=== PATIENT | female | born 1985 | race Caucasian/White ===

== ENCOUNTER → 2018-02-10 07:39 | Outpatient (CLI) | payer OTHER, MEDICAID, SELFPAY ==
--- NOTE | 2018-02-10 | DI.US.S_ITS ---
PROCEDURE: US PELVIC COMPLETE INDICATIONS: PELVIC PAIN TECHNIQUE: Real-time scanning was performed of the pelvic organs, with image documentation. Additional endovaginal scanning was necessary due to incomplete visualization of the adnexal and endometrial structures by transabdominal scanning. COMPARISON: [facility], , PELVIC COMPLETE, 06/11/2015, 8:07. FINDINGS: Transabdominal scanning: Limited scanning through the kidneys shows no hydronephrosis. No pathologic free abdominal or pelvic fluid. Endovaginal scanning: Uterus: Uterus is normal in size at 7.3 x 3.2 x 4.9 cm. The endometrium measures 3.8 mm in combined thickness. Intrauterine device in expected position. Ovaries: Normal ovaries bilaterally measuring 3.1 x 1.6 x 1.5 cm on the right and 2.5 x 1.4 x 1.9 cm on the left. IMPRESSION: No source for pelvic pain identified sonographically. Dictated by: Donovan WELLSA Interpreted: Hoa Dia MD on 02/10/2018 at 8:58 Approved by: Hoa Dia MD, PhD on 02/10/2018 at 11:39
== END ==
PROVIDERS: Family Provider Nurse Practitioner; PCP Nurse Practitioner; Visit Provider Nurse Practitioner
DX: R10.2 Pelvic and perineal pain (principal)
CPT/HCPCS: 76830; 76856

== ENCOUNTER 2018-11-05 19:34 | Emergency (ER) | payer OTHER, MEDICAID, SELFPAY ==
[2018-11-05 19:37] VITALS: BP 124/70; PULSE 59; RESP 16; TEMP 36.6; O2SAT 100; BMI 25.4
--- NOTE | 2018-11-05 19:47 | DI.RAD.S_ITS ---
PROCEDURE: XR CHEST 1V INDICATIONS: chest pain TECHNIQUE: One view of the chest was acquired. COMPARISON: None. FINDINGS: Surgical changes and devices: None. Lungs and pleura: Lungs are clear. No pleural effusions or pneumothorax. Mediastinum: Mediastinal contours appear normal. Heart size is normal. Bones and chest wall: No suspicious bony lesions. Overlying soft tissues appear unremarkable. IMPRESSION: Normal chest. Dictated by: Portia Ferreira M.D. on 11/05/2018 at 20:54 Approved by: Portia Ferreira M.D. on 11/05/2018 at 20:54
--- NOTE | 2018-11-05 20:25 | ED.CHESTPAIN ---
HPI - Chest Pain General Chief Complaint: Chest Pain Stated Complaint: chest pain Time Seen by Provider: 11/05/18 20:25 Source: patient Mode of arrival: ambulatory Limitations: no limitations History of Present Illness HPI narrative: Patient is an otherwise healthy 33-year-old female here for evaluation of left-sided chest pain that radiates down her left arm. She states that she woke up with this morning and has been constant since this morning. Potentially worse with touching it. No change with moving her arm. No change with breathing. No trauma. No prior history of this. Has not tried anything for prior to arrival. She did have an Implanon on placed in August of this year. She has some concern that this may be causing her symptoms. Related Data Previous Rx's Medication Instructions Recorded etonogestrel-ethinyl estradiol 1 vaginalrin VAG Q4W #3 each 03/14/18 0.12 mg -0.015 mg/24 hr vaginal ring lamotrigine 200 mg tablet 200 mg PO QDAY #30 tab 06/26/18 guanfacine ER 1 mg tablet,extended 1 mg PO QPM #30 tab 10/30/18 release 24 hr Allergies Allergy/AdvReac Type Severity Reaction Status Date / Time No Known Drug Allergies Allergy Verified 11/05/18 19:43 Review of Systems Constitutional Denies headache(s) ENT Ears, Nose, Mouth, and Throat: Denies vertigo, Denies dizziness and Denies headache(s) Cardiovascular Reports chest pain, Denies diaphoresis, Denies edema, Denies leg edema, Denies lightheadedness, Denies palpitations and Denies dyspnea Respiratory Denies dyspnea Gastrointestinal Gastrointestinal: Denies abdominal pain, Denies nausea and Denies vomiting Musculoskeletal Denies myalgias and Denies arthralgias Integumentary/Breasts Denies rash Neurologic Denies vertigo, Denies dizziness and Denies headache(s) Endocrine Denies palpitations Hematologic/Lymphatic Denies easy bleeding and Denies easy bruising [facility] Medical History Healthy adult (Acute) Social History Smoking Status: Former smoker Social History Smoking Status: Former smoker Exam Initial Vital Signs Initial Vital Signs: Vital Signs Temperature 97.9 F 11/05/18 19:37 Pulse Rate 59 L 11/05/18 19:37 Respiratory Rate 16 11/05/18 19:37 Blood Pressure 124/70 11/05/18 19:37 Pulse Oximetry 100 11/05/18 19:37 Const General: cooperative, healthy appearing, comfortable, well developed, well groomed and No acute distress Orientation: alert, awake and oriented x3 HENMT Head: normal to inspection and normocephalic Resp Effort & Inspection: normal respiratory effort Auscultation: clear to auscultation bilaterally Cardio Rate: regular rate Rhythm: regular rhythm Pulses: radial pulses present GI Inspection: non-distended Palpation: soft, No firm and No tender Skin Lesions: no lesions Rashes: no rashes Neuro General: alert, awake and oriented x3 Cognition: normal cognition Speech: speech normal Extrem General: normal to inspection, capillary refill normal and pedal edema Psych Appearance: grossly normal and well kempt Scores GCS [place] coma scale eye opening: Spontaneous Abhi coma scale verbal response: Orientated [place] coma scale motor response: Obey commands [place] coma scale total score: 15 HEART Score Heart Score history: Slightly Suspicious Heart Score EKG: Normal Heart Score Age: < 45 years old Heart Score risk factors: No known risk factors Heart Score troponin: < or = to normal limit Heart Score Total: 0 PERC Score Age greater than or equal to 50 years: No Heart rate greater than or equal to 100 bpm: No Room Air O2 Sat less than 95%: No Unilateral leg swelling: No Recent trauma or surgery: No Hemoptysis: No Prior PE or DVT: No Hormone Use: Yes Total PERC Score: 1 Course Orders Ordered: ED Orders 11/05/18 19:47 XR chest 1V Stat EKG-12 Lead Stat 11/05/18 20:37 Complete Blood Count AUTO DIFF Stat Comprehensive Metabolic Panel Stat D Dimer Stat Troponin & CK Cardiac Panel Stat Vital Signs - 8 hr 11/05/18 19:37 11/05/18 21:40 Temperature 97.9 F Pulse Rate 59 L 59 L Respiratory Rate 16 18 Blood Pressure 124/70 102/61 Pulse Oximetry 100 100 MDM - Chest Pain Lab Data Attestation: I reviewed the patient's lab results. Result diagrams: 11/05/18 20:37 11/05/18 20:37 Lab Results 11/05/18 11/05/18 11/05/18 Range/Units 20:37 20:37 20:37 WBC 6.9 (4.5-11.0) X10^3/uL RBC 4.21 (4.0-5.2) X10^6/uL Hgb 13.5 (12.0-16.0) g/dL Hct 39.3 (36-46) % MCV 93.3 (80-100) fL MCH 32.1 (26-34) PG MCHC 34.3 (30-36) % RDW 12.5 (11.6-14.8) % Plt Count 203 (150-400) X10^3/uL Neut % (Auto) 50.1 (50-75) % Lymph % (Auto) 39.2 (25-40) % Rich % (Auto) 8.4 (3-14) % Eos % (Auto) 1.6 L (2-4) % Baso % (Auto) 0.7 (0-2) % Neut # (Auto) 3500 (0521-2100) /uL Lymph # (Auto) 2700 (9815-9946) /uL Rich # (Auto) 600 (0-900) /uL Eos # (Auto) 100 (0-450) /uL Baso # (Auto) 0 (0-100) /uL D-Dimer < 200 (<230) ng/mL Sodium 140 (137-145) mmol/L Potassium 4.6 (3.4-5.1) mmol/L Chloride 103 (98-107) mmol/L Carbon Dioxide 29 (22-32) mmol/L BUN 16 (7-17) mg/dL Creatinine 1.00 (0.52-1.04) mg/dL Estimated GFR > 60.0 (>60) mL/min BUN/Creatinine Ratio 16.0 (6-22) Glucose 98 (70-100) mg/dL Calcium 9.4 (8.4-10.2) mg/dL Total Bilirubin 0.3 (0.2-1.3) mg/dL AST 20 (14-36) IU/L ALT 22 (9-52) IU/L Alkaline Phosphatase 55 (38-126) U/L Total Creatine Kinase 82 (30-135) U/L CK-MB (CK-2) TNP CK-MB (CK-2) Rel Index TNP Troponin I < 0.012 (0.01-0.034) ng/mL Total Protein 7.3 (6.3-8.2) g/dL Albumin 4.6 (3.5-5.0) g/dL Globulin 2.7 (1.7-4.1) g/dL Albumin/Globulin Ratio 1.7 (1.0-2.8) Imaging Data Chest x-ray: Radiologist's impression: [address] [address] XRay Report Signed Patient: Esther Gay LMR#: [id number] : 1985Acct:[id number] Age/Sex: 33 / FDate of Service: 11/05/18 Loc: ED Accession Number: [id number] Procedure: XR chest 1V Ordering Provider: Ray Grigsby D.O. PROCEDURE: XR CHEST 1V INDICATIONS: chest pain TECHNIQUE: One view of the chest was acquired. COMPARISON: None. FINDINGS: Surgical changes and devices: None. Lungs and pleura: Lungs are clear. No pleural effusions or pneumothorax. Mediastinum: Mediastinal contours appear normal. Heart size is normal. Bones and chest wall: No suspicious bony lesions. Overlying soft tissues appear unremarkable. IMPRESSION: Normal chest. Dictated by: Portia Ferreira M.D. on 11/05/2018 at 20:54 Approved by: Portia Ferreira M.D. on 11/05/2018 at 20:54 ECG Data Attestation: I personally reviewed and interpreted this ECG as follows: Prior ECG tracings: not available for review Interpretation: Sinus bradycardia Ventricular rate of 56 Normal as needed oval Normal QRS Left anterior fascicular block No ST T wave changes MDM Narrative Medical decision making narrative: Patient is low risk for ACS, D-dimer negative. Low suspicion for PE. Chest x-ray is unremarkable. Low suspicion for pneumonia. Discussed the symptoms with the patient. Informed her that it would be too early to states that the implant on was the cause of her symptoms. I informed her that is not unreasonable to start on some Zantac to see if she does not improve. I informed her multiple times that I was not telling her that she had reflux disease however since she was low risk for other etiologies that this may potentially help her symptoms. Informed her to contact her primary care doctor for follow-up. Patient expressed understanding and agreement with plan. Discharge Plan Departure Patient Disposition: Home Clinical Impression: Atypical chest pain Discharge Date/Time: 11/05/18 21:41 Interventions: ED Discharge Assessment Last Done: 11/05/18 21:40 Instructions: DI for Atypical Chest Pain Activity Restrictions/Additional Instructions: Contact your primary care doctor for a follow-up. Return to the emergency department for any new or worsening symptoms. Prescriptions: No Action lamotrigine 200 mg tablet 200 mg PO QDAY Qty: 30 RF: 5 etonogestrel-ethinyl estradiol [NuvaRing] 0.12-0.015 mg/24 hr ring 1 vaginalrin VAG Q4W Qty: 3 RF: 3 guanfacine 1 mg tablet extended release 24 hr 1 mg PO QPM Qty: 30 RF: 2 Referrals: Kelli Murray ARNP [Primary Care Provider] -
[2018-11-05 20:52] LABS: Add Manual Diff / Slide Review NO; Basophils Absolute Auto 0 /uL (0-100); Basophils Percent Auto 0.7 % (0-2); Eosinophils Absolute Auto 100 /uL (0-450); Eosinophils Percent Auto 1.6 % (2-4); Hematocrit 39.3 % (36-46); Hemoglobin 13.5 g/dL (12.0-16.0); Lymphocytes Absolute Auto 2700 /uL (1100-4500); Lymphocytes Percent Auto 39.2 % (25-40); Mean Corpuscular HGB Conc 34.3 % (30-36); Mean Corpuscular Hemoglobin 32.1 PG (26-34); Mean Corpuscular Volume 93.3 fL (80-100); Monocytes Absolute Auto 600 /uL (0-900); Monocytes Percent Auto 8.4 % (3-14); Neutrophils Absolute Auto 3500 /uL (1500-7000); Neutrophils Percent Auto 50.1 % (50-75); Platelet Count 203 X10^3/uL (150-400); Red Blood Cell Count 4.21 X10^6/uL (4.0-5.2); Red Cell Distribution Width 12.5 % (11.6-14.8); White Blood Cell Count 6.9 X10^3/uL (4.5-11.0)
[2018-11-05 21:01] LABS: Alanine Aminotransferase 22 IU/L (9-52); Albumin 4.6 g/dL (3.5-5.0); Albumin Globulin Ratio 1.7 (1.0-2.8); Alkaline Phosphatase 55 U/L (38-126); Aspartate Aminotransferase 20 IU/L (14-36); Bilirubin Total 0.3 mg/dL (0.2-1.3); Blood Urea Nitrogen 16 mg/dL (7-17); Calcium 9.4 mg/dL (8.4-10.2); Carbon Dioxide 29 mmol/L (22-32); Chloride 103 mmol/L (98-107); Creatine Kinase 82 U/L (30-135); D Dimer < 200 ng/mL (<230); Estimated Glomerular Filt Rate > 60.0 mL/min (>60); Globulin 2.7 g/dL (1.7-4.1); Glucose 98 mg/dL (70-100); HEMOLYSIS < 15 (0-50); Potassium 4.6 mmol/L (3.4-5.1); Sodium 140 mmol/L (137-145); Total Protein 7.3 g/dL (6.3-8.2)
[2018-11-05 21:12] LABS: Troponin I < 0.012 ng/mL (0.01-0.034)
--- NOTE | 2018-11-05 21:38 | PC.NURSE ---
Reports pain increases on palpation to chest and arm
[2018-11-05 21:40] VITALS: BP 102/61; PULSE 59; RESP 18; O2SAT 100
== END 2018-11-05 21:41 | disposition home or self-care (01) ==
PROVIDERS: Emergency Provider Emergency Medicine; Family Provider Nurse Practitioner; PCP Nurse Practitioner
DX: R07.89 Other chest pain (principal)
CPT/HCPCS: 36415; 71045; 80053; 82550; 84484; 85025; 85379; 93005; 99282; 99285

== ENCOUNTER → 2018-11-19 12:46 | Outpatient (CLI) | payer OTHER, MEDICAID, SELFPAY ==
[2018-11-19 13:10] LABS: Influenza A and B by PCR Rapid Negative (Negative)
== END ==
PROVIDERS: Family Provider Nurse Practitioner; PCP Nurse Practitioner; Visit Provider Physician Assistant
DX: R68.89 Other general symptoms and signs (principal)
CPT/HCPCS: 87400

== ENCOUNTER → 2019-10-03 08:40 | Outpatient (CLI) | payer OTHER, MEDICAID, SELFPAY ==
--- NOTE | 2019-10-03 | DI.US.S_ITS ---
PROCEDURE: US EXTREMITY NONVASC LOWER RT INDICATIONS: LOWER RT LEG LUMP NEAR LATERAL KNEE TECHNIQUE: Real-time scanning was performed of the right posterolateral knee soft tissues in the area of current clinical concern, with image documentation. COMPARISON: None. FINDINGS: The area of concern was identified by the patient for scanning. The palpable abnormality in this area it is located posterolateral A., and corresponds to a 1.0 x 0.5 x 1.1 cm solid appearing superficial masslike structure with internal vascularity, just below the dermis layer. It is superficial to the muscular fascia layer immediately below. IMPRESSION: Solid ovoid mass lesion measuring 5 x 10 x 11 mm corresponds to the current area of clinical concern. Etiology is uncertain, surgical consultation appears warranted for consideration of excisional biopsy. Dictated by: Brandon Moore M.D. on 10/03/2019 at 12:49 Approved by: Brandon Moore M.D. on 10/03/2019 at 12:52
== END ==
PROVIDERS: Family Provider Nurse Practitioner; PCP Nurse Practitioner Family; Referring Provider Nurse Practitioner Family; Visit Provider Nurse Practitioner Family
DX: R22.41 Localized swelling, mass and lump, right lower limb (principal)
CPT/HCPCS: 76882

== ENCOUNTER → 2019-10-30 11:33 | Outpatient (CLI) | payer OTHER, MEDICAID, SELFPAY ==
[2019-10-30 12:32] LABS: Influenza A - CEPHEID Flu A NEGATIVE (NEGATIVE); Influenza B - CEPHEID Flu B NEGATIVE (NEGATIVE)
[2019-11-10 02:07] LABS: COVID19 Sendout Not Detected (Not Detected)
== END ==
PROVIDERS: Family Provider Nurse Practitioner; PCP Nurse Practitioner Family; Visit Provider Physician Assistant
DX: R68.89 Other general symptoms and signs (principal)
CPT/HCPCS: 87502; 87635

== ENCOUNTER → 2020-02-10 16:47 | Outpatient (ROUT) | payer OTHER, MEDICAID, SELFPAY ==
[2020-02-11 08:58] LABS: COVID19 Sendout Not Detected (Not Detect)
== END ==
PROVIDERS: Family Provider Nurse Practitioner; PCP Nurse Practitioner Family; Visit Provider Physician Assistant
DX: Z01.812 Encounter for preprocedural laboratory examination (principal)
CPT/HCPCS: 87635

== ENCOUNTER 2020-02-13 10:48 | Day surgery (SDC) | payer OTHER, MEDICAID, SELFPAY ==
[2020-02-07 10:41] VITALS: BMI 24.7
[2020-02-13] VITALS (9 sets, daily range): BP systolic 81–114; BP diastolic 45–73; PULSE 50–70; RESP 7–18; TEMP 35.9–36.5; O2SAT 99–100; BMI 24.7
--- NOTE | 2020-02-13 | PATH_ITS ---
[facility] Accession Number: [id number] . 01 Material submitted: . leg - RIGHT LEG POSTERIOR MASS/LYMPH NODE . 01 Diagnosis: Right Leg Posterior, Biopsy: Spiradenoma. MRV 02/15/2020 1058 Local . 01 Electronically signed: Rosalie Mulligan MD, Dermatopathologist NPI- [id number] . 01 Gross description: . Specimen A is received in formalin, labeled with patient identification and right leg posterior mass/lymph node. It consists of a 1.4 x 0.9 x 0.4 cm yellow-tong firm and soft tissue piece. The outer surface is inked blue. Sectioning reveals yellow-tong and smooth cut surfaces. The entire specimen is submitted in one cassette. . Summary of sections: A1 - six pieces. ([id number]) /MRV 02/14/2020 1402 Local . 01 Pathologist provided ICD-10: D23.9 . 01 CPT . 358390 Performed at: [address] [id number] MD Quoc Anthony MD Phone: [phone]
[2020-02-13] MEDS: LACTATED RINGERS 1,000 ML 100 ML IV (11:03)
--- NOTE | 2020-02-13 11:21 | PM.PREOP ---
Pre-operative Note COVID-19 COVID-19 status: Negative Result date/Date tested (Pos, Neg/Pending): 02/10/20 Interval Note History & Physical reviewed/Exam performed by Physician: Yes Changes to H&P: Yes H&P completed within 30 days and has changed as indicated here:: Patient reports she has started smoking cigarettes since her prior visit. I strongly recommended she stop doing that for the sake of her health and wound healing.
--- NOTE | 2020-02-13 11:23 | SUR.PREOP ---
Dr. Valladares knows patient did not take test.
[2020-02-13] MEDS: CEFAZOLIN 2 GM/100 ML FROZ.PIGGY IV (11:48)
--- NOTE | 2020-02-13 12:11 | SUR.OPER ---
Prone on padded OR bed, head in foam head support, gel chest rolls, gel pad under knees, pillow under lower legs, toes free of pressure, arms secured on padded arm boards at <90 degrees abduction. Safety belt at thigh.
[2020-02-13] MEDS: BUPIVACAINE 0.25% W/ EPI 30 ML VIAL INJ (12:15)
--- NOTE | 2020-02-15 05:39 | PM.OP.1 ---
Operative Date/Time/Diagnoses Date of procedure: 02/13/20 Time of procedure: 11:45 Pre-op diagnosis: neoplasm of uncertain behavior, of right leg Post-op diagnosis: other (abnormal lymph node, right leg) Procedure & Clinicians Procedure: Right leg, mass excision Same procedure as scheduled: Yes Indications: This is a 34 yo woman with an enlarging painful mass behind her right knee. It causes her pain, and the malignant potential is unknown. Excision is indicated for diagnosis and relief of pain. Surgeon: Emma Valladares Click Yes if Unassisted: Yes Anesthesia Type: General Operative Notes Findings: 1cm x 1cm firm nodule consistent in appearance with an abnormal lymph node Closure Type: primary Specimen(s): other (right leg lymph node) Estimated Blood Loss (mL): 1 Procedure in detail: The patient was brought into the operating room. Sequential compression device was placed on the left leg only and turned on. General anesthesia was induced and the patient was intubated by Dr. Boyer. The patient was placed in prone position with all bony prominences padded. The right posterior leg was prepped and draped in sterile fashion. Surgical time out was conducted. Local anesthetic was infiltrated into the skin overlying the palpable mass in the area behind the right knee on the lateral side. A 15 blade was used to make a vertical incision over the mass. Careful dissection was carried down through the subcutaneous tissue and the mass came into view. Its surface was shiny, and it was firm and pale, appearing like an abnormal lymph node. The mass was delivered through the wound, and its attachments were ligated with 3-0 Vicryl ties, and divided with cautery. It was passed off the field for pathology. The skin was closed in layers using 3-0 Vicryl and 4-0 Monocryl. The skin edges were sealed with Dermabond. Needle, sponge and instrument counts were correct x 2 at the end of the procedure. The patient was awakened from anesthesia and turned supine onto her hospital bed. She was transferred to the pacu in stable condition. Complications: none Post-operative Condition: stable Disposition: PACU
== END 2020-02-13 13:45 | disposition home or self-care (01) ==
PROVIDERS: Family Provider Nurse Practitioner; PCP Nurse Practitioner Family; Referring Provider Surgery; Visit Provider Surgery
PROC: (CPT 11402; principal; 2020-02-13 12:45)
DX: D23.71 Other benign neoplasm of skin of right lower limb, including hip (principal)
CPT/HCPCS: 11402; J0690; J1100; J2405; J2704; J3010

== ENCOUNTER → 2020-06-27 09:18 | Outpatient (CLI) | payer OTHER, MEDICAID, SELFPAY ==
--- NOTE | 2020-06-27 | DI.RAD.S_ITS ---
PROCEDURE: XR LUMBAR SPINE 2-3V INDICATIONS: low back pain TECHNIQUE: 3 views of the lumbar spine were acquired. COMPARISON: [facility], JULIET, XR SACROILIAC JOINT MIN 3V, 06/27/2020, 9:24. [facility], JULIET, L-SPINE 2-3 VIEWS, 10/15/2016, 15:02. FINDINGS: Bones: 5 [id number] vertebrae are present. There is normal bony alignment. No vertebral body compression fractures. No suspicious bony lesions. At there is mild to moderate disc space narrowing seen at the L5-S1 level. The disc heights otherwise appear well-preserved. Lower lumbar spine facet arthropathy is seen. Soft tissues: Overlying bowel gas pattern is normal. No suspicious soft tissue calcifications. IMPRESSION: Focal L5-S1 degenerative change. Dictated by: Solis Jacome M.D. on 06/27/2020 at 9:37 Approved by: Solis Jacome M.D. on 06/27/2020 at 9:38
--- NOTE | 2020-06-27 | DI.RAD.S_ITS ---
PROCEDURE: XR SACROILIAC JOINT MIN 3V INDICATIONS: si joint pain TECHNIQUE: 3 views of the sacroiliac joints were acquired. COMPARISON: None. FINDINGS: Bones: No bony erosions or ankylosis. No suspicious bony lesions. No fractures. Soft tissues: Overlying bowel gas pattern is normal. No suspicious soft tissue densities. IMPRESSION: Unremarkable sacroiliac joint plain films. Dictated by: Solis Jacome M.D. on 06/27/2020 at 9:37 Approved by: Solis Jacome M.D. on 06/27/2020 at 9:37
== END ==
PROVIDERS: Family Provider Nurse Practitioner; PCP Nurse Practitioner Family; Referring Provider Naturopath; Visit Provider Naturopath
DX: M54.5 Low back pain (principal); M53.3 Sacrococcygeal disorders, not elsewhere classified
CPT/HCPCS: 72100; 72202

== ENCOUNTER → 2021-04-13 10:23 | Outpatient (CLI) | payer OTHER, MEDICAID, SELFPAY ==
[2021-04-13 13:40] LABS: COVID19 -Nasal RAPID Negative (Negative)
== END ==
PROVIDERS: Family Provider Nurse Practitioner; PCP Nurse Practitioner Family; Visit Provider Physician Assistant
DX: Z20.822 Contact with and (suspected) exposure to COVID-19 (principal); J02.9 Acute pharyngitis, unspecified
CPT/HCPCS: 87635

== ENCOUNTER → 2024-06-13 13:30 | Outpatient (CLI) | payer OTHER, MEDICAID, SELFPAY ==
--- NOTE | 2024-06-13 13:31 | DI.RAD.S_ITS ---
PROCEDURE: XR WRIST LT MIN 3V INDICATIONS: Tenderness thumb side x 2-3 months; no hx of injury TECHNIQUE: Four views of the wrist were acquired. COMPARISON: None. FINDINGS: Bones: There are no osseous abnormalities Joints: Minimal STT and 1st CMC degeneration appreciated. Soft tissues: No soft tissue abnormality. IMPRESSION: Minimal Dictated by: Aldair Jones M.D. on 06/14/2024 at 11:56 Approved by: Aldair Jones M.D. on 06/14/2024 at 11:57
== END ==
LOC: RAD 13:31
PROVIDERS: Family Provider Nurse Practitioner; PCP Family Medicine; Referring Provider Physician Assistant; Visit Provider Physician Assistant
DX: M25.532 Pain in left wrist (principal)
CPT/HCPCS: 73110

== ENCOUNTER → 2024-09-04 08:45 | Outpatient (CLI) | payer OTHER, SELFPAY ==
[2024-09-04 09:35] LABS: Add Manual Diff / Slide Review NO; Basophils Absolute Auto 0 /uL (0-100); Basophils Percent Auto 0.3 % (0-2); Eosinophils Absolute Auto 0 /uL (0-450); Eosinophils Percent Auto 0.6 % (2-4); Hemoglobin 14.3 g/dL (12.0-16.0); Lymphocytes Absolute Auto 1900 /uL (1100-4500); Lymphocytes Percent Auto 26.1 % (25-40); Mean Corpuscular HGB Conc 34.1 % (30-36); Mean Corpuscular Hemoglobin 31.7 PG (26-34); Mean Corpuscular Volume 92.9 fL (80-100); Monocytes Absolute Auto 500 /uL (0-900); Monocytes Percent Auto 6.8 % (3-14); Neutrophils Absolute Auto 4900 /uL (1500-7000); Neutrophils Percent Auto 66.2 % (50-75); Platelet Count 207 X10^3/uL (150-400); Red Blood Cell Count 4.52 X10^6/uL (4.0-5.2); Red Cell Distribution Width 12.3 % (11.6-14.8); White Blood Cell Count 7.4 X10^3/uL (4.5-11.0)
[2024-09-04 10:19] LABS: Alanine Aminotransferase 10 IU/L (<35); Albumin 4.9 g/dL (3.5-5.0); Alkaline Phosphatase 58 U/L (38-126); Aspartate Aminotransferase 22 IU/L (14-36); BUN Creatinine Ratio 22.9 (6-22); Bilirubin Total 0.8 mg/dL (0.2-1.3); Blood Urea Nitrogen 22 mg/dL (7-17); Calcium 9.7 mg/dL (8.4-10.2); Carbon Dioxide 30 mmol/L (22-32); Chloride 101 mmol/L (98-107); Estimated Glomerular Filt Rate > 60 mL/min (>60); Globulin 2.5 g/dL (1.7-4.1); Glucose 92 mg/dL (70-100); HEMOLYSIS < 15 (0-50); Potassium 3.9 mmol/L (3.4-5.1); Sodium 139 mmol/L (137-145); Total Protein 7.4 g/dL (6.3-8.2)
[2024-09-04 10:34] LABS: Free T3, Triiodothyronine Free 3.51 pg/mL (2.77-5.27)
[2024-09-04 10:46] LABS: Hemoglobin A1C% w Est Avg Glu 4.9 % (4.0-6.0)
[2024-09-04 10:48] LABS: TSH w/ Reflex to FT4 0.23 uIU/mL (0.47-4.68)
[2024-09-04 13:33] LABS: Free T4, Direct Thyroxine 1.01 ng/dL (0.78-2.19)
== END ==
PROVIDERS: Family Provider Nurse Practitioner; PCP Family Medicine; Referring Provider Family Medicine; Visit Provider Family Medicine
DX: Z00.00 Encounter for general adult medical examination without abnormal findings (principal); R53.83 Other fatigue; F34.0 Cyclothymic disorder; F41.8 Other specified anxiety disorders; O99.345 Other mental disorders complicating the puerperium
CPT/HCPCS: 36415; 80053; 82627; 83036; 84439; 84443; 84481; 85025; 86140

== ENCOUNTER → 2025-02-21 10:41 | Outpatient (CLI) | payer OTHER, SELFPAY ==
[2025-02-21 12:10] LABS: Thyroid Stimulating Hormone 0.015 uIU/mL (0.47-4.68)
== END ==
PROVIDERS: Family Provider Nurse Practitioner; PCP Family Medicine; Referring Provider Family Medicine; Visit Provider Family Medicine
DX: R79.89 Other specified abnormal findings of blood chemistry (principal); R53.83 Other fatigue
CPT/HCPCS: 36415; 84443

== ENCOUNTER → 2025-03-14 12:47 | Outpatient (CLI) | payer OTHER, SELFPAY ==
--- NOTE | 2025-03-14 12:48 | DI.US.S_ITS ---
PROCEDURE: US EXTREMITY NONVASC LOWER RT INDICATIONS: suspect Tyson's cysts TECHNIQUE: Real-time scanning was performed of the right posterior knee, with image documentation. COMPARISON: [facility], , EXTREMITY NONVASC LOWER RT, 10/03/2019, 9:11. FINDINGS: There is a 2.7 cm cystic lesion in the right popliteal fossa, likely representing a small right popliteal cyst. IMPRESSION: Small right popliteal cyst. Dictated by: Meaghan Guidry M.D. on 03/14/2025 at 17:33 Approved by: Meaghan Guidry M.D. on 03/14/2025 at 17:36
--- NOTE | 2025-03-14 12:48 | DI.US.S_ITS ---
PROCEDURE: US EXTREMITY NONVASC LOWER LT INDICATIONS: suspect Tyson's cysts TECHNIQUE: Real-time scanning was performed of the left posterior knee, with image documentation. COMPARISON: [facility], US, US EXTREMITY NONVASC LOWER RT, 03/14/2025, 13:07. FINDINGS: There is small amount of fluid measuring up to 2.3 cm in the left popliteal fossa, likely representing a small popliteal cyst. IMPRESSION: 2.3 cm small left popliteal cyst. Dictated by: Meaghan Guidry M.D. on 03/14/2025 at 17:36 Approved by: Meaghan Guidry M.D. on 03/14/2025 at 17:38
== END ==
LOC: US 12:47
PROVIDERS: PCP Family Medicine; Referring Provider Family Medicine; Visit Provider Family Medicine
DX: M71.22 Synovial cyst of popliteal space [Baker], left knee (principal); M71.21 Synovial cyst of popliteal space [Baker], right knee; M25.569 Pain in unspecified knee
CPT/HCPCS: 76882

== ENCOUNTER 2025-04-19 10:31 | Emergency (ER) | payer OTHER, SELFPAY ==
[2025-04-19 11:08] VITALS: BP 113/69; PULSE 61; RESP 16; TEMP 36.6; O2SAT 99; BMI 25.0
--- NOTE | 2025-04-19 11:54 | DI.RAD.S_ITS ---
PROCEDURE: XR LUMBAR SPINE 2-3V INDICATIONS: Low back pain. TECHNIQUE: 3 views of the lumbar spine were acquired. COMPARISON: [facility], CR, XR LUMBAR SPINE 2-3V, 06/27/2020, 9:24. FINDINGS AND IMPRESSION: Mild overall spondylosis, no displaced fracture or traumatic subluxation. Focal disc space height loss is most significant at L5-S1, slightly worse than before. No suspicious soft tissue calcifications. If there is high concern for further derangement, consider MRI evaluation. Dictated by: Ar Lorenzo M.D. on 04/19/2025 at 12:35 Approved by: Ar Lorenzo M.D. on 04/19/2025 at 12:35
--- NOTE | 2025-04-19 11:58 | ED_ITS ---
<Statement entered by Aldair Garcia, DO - 04/19/25 18:47> Co-sign statement: I was available for consultation during this patient's emergency department visit. This chart is being signed by myself for administrative purposes only. I do not have direct contact with this patient during this visit. They were seen independently by the [facility]. HPI - Back Pain/Injury General Chief Complaint: Back Pain/Injury Stated Complaint: Lower back pain going down hips and legs Time Seen by Provider: 04/19/25 10:40 Source: patient History of Present Illness HPI Narrative: 39-year-old female, currently , presents to the emergency department with low back pain x 1 month. Patient reports lifting a stroller and feeling a pinching her back which causes intermittent right leg numbness and lower back spasms. Patient denies loss of control of bowel or bladder. Patient did have ultrasounds of bilateral knees with evidence bilateral Tyson's cysts. Related Data Home Medications ?Medication ?Instructions ?Recorded ?Confirmed cholecalciferol (vitamin D3) 125 125 mcg PO DAILY 05/1503/25/25 mcg (5,000 unit) capsule Vitamin B 1 tab PO .QD 02/27/25 post MTV 1 tab PO .QD 02/27/25 Previous Rx's ?Medication ?Instructions ?Recorded methocarbamol 500 mg tablet 500 mg PO TID PRN Low back pain. 04/19/25 #14 tabs methylprednisolone 4 mg tablets in See Rx Instructions PO .COMPLEX 04/19/25 a dose pack (Medrol (Sumit)) Low back pain. #21 ea Allergies Allergy/AdvReac Type Severity Reaction Status Date / Time No Known Drug Allergies Allergy Verified 03/25/25 16:25 Review of Systems Review of Systems Narrative: Narrative: See HPI. GENERAL: Denies chills, fatigue, fever, sweats. HEENT: Denies sinus pain, ear pain, sore throat, difficulty swallowing, dizziness. RESPIRATORY: Denies dyspnea, cough, wheezing, sputum. CARDIOVASCULAR: Denies chest pain, palpitations, edema. GASTROINTESTINAL: Denies nausea, vomiting, abdominal pain, diarrhea, con stipation. : Denies dysuria, frequency, incontinence, hematuria, urinary retention, flank pain. MSK: Denies weakness. Endorses low back pain. SKIN: Denies rash, skin lesions, or pruritis. NEUROLOGIC: Denies weakness, dizziness, headache, numbness, confusion. Patient History Medical History Eccrine spiradenoma anxiety Asthma, exercise induced Hx of LEEP (loop electrosurgical excision procedure) of cervix complicating Surgical History Hx of skin graft Hx of wisdom tooth extraction Hx of oral surgery Hx of foot surgery Hx of tonsillectomy Social History marital status: unmarried,living together household members: significant other and family occupational status: employed alcohol intake: current substance use type: does not use Smoking Status: Former smoker tobacco type: cigarettes alcohol intake frequency: holidays/special occasions only Exam Narrative Exam Narrative: Exam Narrative: GENERAL: This is a well-nourished, well-developed patient, in no acute distress. HEAD: Atraumatic. Normocephalic. EYES: Pupils equal round and reactive. Extraocular motions intact. No scleral icterus, injection or drainage. ENT: Nose without bleeding, purulent drainage. Airway patent. CARDIOVASCULAR: Regular rate and rhythm without murmurs, peripheral pulses intact, cap refill <2 sec. RESPIRATORY: Breath sounds equal and clear bilaterally. No wheezes, rales, or rhonchi. No cough. No increased respiratory effort. No accessory muscle use. GASTROINTESTINAL: Abdomen soft, non-tender, nondistended without guarding or rebound. No suprapubic pain. MSK: Moves all extremities. Normal range of motion, no clubbing or edema. Neurovascularly intact. NEURO: A&O x 3. SKIN: Warm, dry, no rashes or lesions noted. BACK collar stay fuser tender but free of any obvious external abnormalities. There is no asymmetry, swelling, bruising or wound. There is no paraspinal tenderness or CVA tenderness. SI joints nontender. No pain over spinous processes. No symptoms of cauda equina such as saddle anesthesia. Sensation is grossly intact. ROM is limited due to pain. SLE is negative bilaterally. Pain in mid lower back with leg raise. Reflexes 2-3 at patella and achilles bilaterally. Resistive strengths are within normal limits Gait is normal. Heel toe balance is intact. Initial Vital Signs Initial Vital Signs: Vital Signs Temperature 97.9 F 04/19/25 11:08 Pulse Rate 61 04/19/25 11:08 Respiratory Rate 16 04/19/25 11:08 Blood Pressure 113/69 04/19/25 11:08 Pulse Oximetry 99 04/19/25 11:08 Oxygen Delivery Method Room Air 04/19/25 11:08 Reviewed Course Orders Ordered: ED Orders 04/19/25 11:54 XR lumbar spine 2-3V Stat Vital Signs Vital signs: Vital Signs - 8 hr 04/19/25 11:08 Temperature 97.9 F Pulse Rate 61 Respiratory Rate 16 Blood Pressure 113/69 Pulse Oximetry 99 Oxygen Delivery Method Room Air MDM - Back Pain/Injury Differential Diagnosis Differential diagnosis: Likely lumbar radiculopathy and strain of lumbar region Imaging Data Extremity x-ray #1: Radiologist's Impression: [place] [address] XRay Report Signed Patient: Esther Sargent MR#: [id number] : 1985 Acct:[id number] Age/Sex: 39 / F Date of Service: 04/19/25 Loc: ED Accession Number: [id number] Procedure: XR lumbar spine 2-3V Ordering Provider: Ray Oakley PROCEDURE: XR LUMBAR SPINE 2-3V INDICATIONS: Low back pain. TECHNIQUE: 3 views of the lumbar spine were acquired. COMPARISON: [facility], , XR LUMBAR SPINE 2-3V, 06/27/2020, 9:24. FINDINGS AND IMPRESSION: Mild overall spondylosis, no displaced fracture or traumatic subluxation. Focal disc space height loss is most significant at L5-S1, slightly worse than before. No suspicious soft tissue calcifications. If there is high concern for further derangement, consider MRI evaluation. Dictated by: Ar Lorenzo M.D. on 04/19/2025 at 12:35 Approved by: Ar Lorenzo M.D. on 04/19/2025 at 12:35 MDM Narrative Medical decision making narrative: 39-year-old female with low back pain and spasms x1 month. Clinical findings did not reveal any red flag symptoms. Will obtain a baseline lumbar series x- ray, and if negative, will treat with Medrol Dosepak and Robaxin. Discussed the medication along with and recommended the Robaxin in between feedings or at bedtime (any particular time that gives the longest period in between feedings). Recommend patient follow up with his family doctor next week to ensure symptoms are improving. Discussed plan of care and return precautions with patient and spouse, who verbalized understanding and were agreeable with course of action. Consideration included that injury was non-traumatic, patient is not a IV drug user, no fever, neurovascular intact, no weakness, no signs of epidural abscess or saddle anesthesia. Discharge Plan Departure Patient Disposition: Home Clinical Impression: Acute low back pain Qualifiers: Back pain laterality: midline Sciatica presence: without sciatica Qualified Code(s): M54.50 - Low back pain, unspecified Instructions: DI for Low Back Pain, DI for Back Spasm Activity Restrictions/Additional Instructions: *You have been diagnosed with low back pain. My assessment and not reveal any red flag symptoms and your x-ray did not reveal any new fractures or subluxations. It did reveal increased narrowing between the L5-S1 vertebrae, in comparison with your previous x-ray. We will treat this with a short course steroids and a trial of a nonsedating muscle relaxer. As we discussed, you may try the muscle relaxer during a period immediately after to allow more time to work its way through her system. I recommend you follow-up with your family doctor this next week to ensure symptoms are improving. For any worsening symptoms that include loss of control of bowel or bladder or complete numbness and tingling of your legs, please return to the emergency department. *What to do: *Please continue to take your regular medications as directed. [x ] New medication prescriptions sent to your pharmacy: [[facility]] [ ] New medication written as a paper prescription [ ] No new medications given *Please follow up with your primary care provider in 2-3 days, call for an appointment. Let them know you were seen in the Emergency Department and that we ask that you be seen in follow up. We will electronically transmit a record of today's note if your PCP is in our system *If you do not have a primary care provider please contact the [facility] Resource line at [phone]. They will ask some questions about your medical history and help get you set up with a doctor in the community. ? Return to ER if you should have any new, worsening or concerning symptoms, such as worsening pain, severe headache, confusion, chest pain, difficulty breathing, fever greater than 101 F, shaking chills, persistent vomiting to the point that you cannot drink fluids, or other new or worsening symptoms. Prescriptions: New methylprednisolone [Medrol (Sumit)] 4 mg tablets,dose pack See Rx Instructions .ROUTE .COMPLEX Qty: 21 0RF Rx Instructions: for 6 days methocarbamol 500 mg tablet 500 mg PO TID PRN (Reason: Low back pain.) Qty: 14 0RF Rx Instructions: Take 1 tablet up to 3 times a day for muscle spasms, preferably during a period when you are not . No Action cholecalciferol (vitamin D3) 125 mcg (5,000 unit) capsule 125 mcg PO DAILY Vitamin B 1 tab PO .QD post MTV 1 tab PO .QD Referrals: Tabitha Clark DO [Primary Care Provider, Medical] Stand Alone Forms: Patient Portal/API
== END 2025-04-19 12:57 | disposition home or self-care (01) ==
PROVIDERS: Emergency Provider Registered Nurse; PCP Family Medicine
DX: M54.50 Low back pain, unspecified (principal)
CPT/HCPCS: 72100; 99281; 99283

== ENCOUNTER → 2025-05-09 12:44 | Outpatient (CLI) | payer OTHER, SELFPAY ==
[2025-05-09 19:04] LABS: Urine N gonorrhoeae NOT DETECTED
[2025-05-09 19:13] LABS: Urine Chlamydia NOT DETECTED
== END ==
LOC: LAB 13:16
PROVIDERS: PCP Family Medicine; Visit Provider Family Medicine
DX: Z20.2 Contact with and (suspected) exposure to infections with a predominantly sexual mode of transmission (principal)
CPT/HCPCS: 87491; 87591